=== PATIENT | female | born 1975 | race African-American/Black ===

== ENCOUNTER 2019-02-22 13:58 | Inpatient (IN) | payer OTHER ==
[~2019-02-22] VITALS: Ht 167.6 cm; Wt 93.4 kg
[2019-02-22 14:07] VITALS: Ht 167.6 cm; Wt 93.4 kg
--- NOTE | 2019-02-22 14:10 | NUR ---
PT BIB [facility] WITH C/O VOMITING AND DIARRHEA. PER MEDIC PT WAS PICKED UP NEAR [facility] WHERE PT AND FRIEND HAD STOPPED TO USE THE RESTROOM. PT AND FRIEND ATE THE SAME BREAKFAST; HOWEVER, PT HAD COFFEE FROM THE [facility] IN [facility] WHERE THEY RESIDE. AT BEDSIDE PT WAS ABLE TO AMBULATE WITH ASSIST FROM [place] TO BED, PT LETHARGIC, PT CLOTHES ARE SOILED. PT CLOTHES REMOVED, PT PLACED IN A GOWN AND PLACED ON FULL CM MONITOR. PT REPORTS "I FEEL COLD". RECTAL TEMP WAS 96.9 F. PT GIVEN BLANKETS. PT ABLE TO ANSWER SHORT ANSWER QUESTIONS, BUT NOT FULL SENTANCES. IV WAS ISTABLISHED SUB ARC OPERATOR, BUT PT REMOVED WHILE SHE WAS MOVING IN [facility].
--- NOTE | 2019-02-22 14:21 | NUR ---
HUSBANDS NAME AND NUMBER JULIANA [phone]
--- NOTE | 2019-02-22 15:35 | NUR ---
AND PT'S FRIEND AT BEDSIDE. PT HAD A BM WHILE IN BED. LOOSE STOOL. PT CLEANSED. RESPS E/U, SKIN IS PINK, WARM AND DRY.
--- NOTE | 2019-02-22 15:50 | NUR ---
ED PHYSICIAN AT BEDSIDE FOR PATIENT EVALUATION. MEDICAL SCREENING EXAMINATION COMPLETED BY ED PHYSICIAN DR. PORTILLO
[2019-02-22 15:58] LABS: PLATELET COUNT 224 x10^3mcL (130-400)
[2019-02-22 15:59] LABS: BASOPHIL % 0 % (0-2); RED CELL DISTRIBUTION WIDTH 14.7 % (11.5-14.5)
--- NOTE | 2019-02-22 16:10 | NUR ---
WHILE ROUNDING AND DOING IV CHECK, IV SITE NO LONGER HAD IV. PT REMOVED IT WHILE MOVING AROUND IN BED. SITE DRY, NO BLOOD NOTED. DR. PORTILLO MADE AWARE. WILL ESTABLISH NEW IV.
[2019-02-22 16:11] LABS: CALCIUM 8.6 mg/dL (8.5-10.1); CARBON DIOXIDE 19.6 mmol/L (21-32); CHLORIDE SERUM 104 mmol/L (98-107); CREATININE SERUM 0.8 mg/dL (0.6-1.0); GFR1 > 60 mL/min; GLUCOSE SERUM 111 mg/dL (74-106); POTASSIUM SERUM 3.7 mmol/L (3.5-5.1); SODIUM SERUM 140 mmol/L (136-145)
[2019-02-22 16:16] LABS: ALBUMIN 4.4 g/dL (3.4-5.0); ALKALINE PHOSPHATASE 85 U/L (46-116); ALT/SGPT 52 U/L (14-59); AST/SGOT 41 U/L (15-37); BILIRUBIN TOTAL 0.6 mg/dL (0.20-1.00); LIPASE 69 IU/L (73-393); TOTAL PROTEIN, SERUM 7.9 g/dL (6.4-8.2)
--- NOTE | 2019-02-22 16:20 | NUR ---
PT C/O NAUSEA. DR. PORTILLO MADE AWARE. PT MORE ALERT, FOR SHE'S ABLE TO SPEAK IN FULL SENTANCES. NEW ORDERS PLACED.
--- NOTE | 2019-02-22 16:52 | NUR ---
PT RESTING IN POSITION OF COMFORT. PT SLEEPING BUT EASILY AROUSABLE. RESPS E/U, SKIN IS PINK WARM AND DRY. SP02 100% ON RA.
--- NOTE | 2019-02-22 17:22 | NUR ---
PT RESTING IN POSITION OF COMFORT. SLEEPING BUT EASILY AROUSBALE. NEW IV SIT INTACT. SP02 99% ON RA.
--- NOTE | 2019-02-22 18:33 | NUR ---
PT SLEEPING BUT EASILY AROUSABLE. PT HAD ANOTHER BM IN COMMODE NEAR BED. AT BEDSIDE. HE STS "I COULD TELL SHE'S FEELING BETTER". SPO2 99% ON RA, HR=77.
--- NOTE | 2019-02-22 19:03 | NUR ---
REPORT HAND-OFF TO FLORENTIN CHAUHAN.
--- NOTE | 2019-02-22 19:28 | NUR ---
PT ACTING IRRATICALLY WITH CAREGIVERS. UNWILLING TO GIVE URINE SAMPLE AT THIS TIME.
--- NOTE | 2019-02-22 21:09 | NUR ---
PT RESTING IN BED WITH EYES CLOSED WITH OCCASIONAL IRRATIC MOVEMENTS AND VERBALIZATIONS. AT BEDSIDE.
[2019-02-22 22:25] LABS: T3 TOTAL 1.1 ng/mL
[2019-02-22 22:27] LABS: CHOLESTEROL/HDL RATIO 4.2; MAGNESIUM 1.9 mg/dL (1.8-2.4); PHOSPHOROUS 2.4 mg/dL (2.5-4.9)
[2019-02-22 22:35] LABS: FREE T4 0.97 ng/dL (0.76-1.46); FREE THYROXINE INDEX 2.4 ug/dL (1.4-4.5); T4(THYROXINE) 6.9 ug/dL (4.7-13.3)
--- NOTE | 2019-02-22 23:13 | NUR ---
REPORT GIVEN TO ASRA LERMA.
--- NOTE | 2019-02-22 23:20 | NUR ---
PT ARIVED VIA GURMICHELLE ACCOMPANIED BY ED NURSE AND . PT A/OX 4 BUT LETHARGIC, PT DENIES CHEST PAIN AT THIS TIME, PERIPHERAL PULSES PALPABLE, LUNG SOUNDS CTA RESPIRATIONS EVEN AND UNLABORED, BOWEL SOUNDS ACTIVE, PT COMPLAINS OF NAUSEA, AND REPORTS DIARRHEA, PT VOIDS FREELY, SKININTACT AND DRY, SAFETY PRECAUTIONS IN PLACE, PT AND SPOUSE ORIENTED TO ROOM AND CALL LIGHT CONTROLS, SAFETY PRECAUTIONS IN PLACE, WILL CONTINUE TO MONITOR
[2019-02-22 23:52] VITALS: BP 168/103
[2019-02-23 02:29] LABS: AMPHETAMINE QUAL UR NONE DETECTED (See below); UA SPECIFIC GRAVITY 1.025 (1.005-1.035); microscopic required? YES
[2019-02-23 02:30] LABS: urine erythrocyte NEGATIVE (NEGATIVE)
--- NOTE | 2019-02-23 02:47 | NUR ---
PT RESTING IN BED WITH NO SIGNS OF ACUTE DISTRESS, SLEEPING IN CHAIR NEXT TO HER, PT RESPIRATIONS EVEN AND UNLABOURED, SAFETY PRECAUTIONS IN PLACE WILL CONTINUE TO MONITOR
--- NOTE | 2019-02-23 05:05 | NUR ---
PT COMPLAINED OF NAUSEA, MEDICATED WITH ZOFRAN 4MG PRN PER ORDER, WILL REASSESS
[2019-02-23 05:11] VITALS: BP 165/99
--- NOTE | 2019-02-23 05:15 | NUR ---
PT BP ELEVEATED, AT 165/[address] IN[address] RIVAS, NO NEW ORDERS AT THIS TIME, WILL CONTINUE TO MONITOR
[2019-02-23 05:27] LABS: BASOPHIL % 0.1 % (0-2); PLATELET COUNT 273 x10^3mcL (130-400)
[2019-02-23 05:31] LABS: RED CELL DISTRIBUTION WIDTH 14.9 % (11.5-14.5)
--- NOTE | 2019-02-23 05:33 | NUR ---
PT SLEPT FOR THE FIRST5 HORS OF SHIFT, PT AWOKE AT 5 COMPLAINING OF NAUSEA WHICH WAS TREATED WITH ZOFRAN PER ORDER, PT HAD NO COMPLAINTS OF CHEST PAIN OR SOB THROUGH SHIFT, WILL CONTINUE TO MONITOR AND WILL ENDORSE TO ONCOMING RN
[2019-02-23 05:40] LABS: CALCIUM 8.1 mg/dL (8.5-10.1); CARBON DIOXIDE 22.3 mmol/L (21-32); CHLORIDE SERUM 103 mmol/L (98-107); CREATININE SERUM 0.7 mg/dL (0.6-1.0); GFR1 > 60 mL/min; GLUCOSE SERUM 122 mg/dL (74-106); MAGNESIUM 1.9 mg/dL (1.8-2.4); PHOSPHOROUS 2.7 mg/dL (2.5-4.9); POTASSIUM SERUM 3.5 mmol/L (3.5-5.1); SODIUM SERUM 138 mmol/L (136-145)
--- NOTE | 2019-02-23 07:15 | NUR ---
RECEIVED BEDSIDE REPORT FROM CRA NURSE. PATIENT IS SEEN RESTING IN BED COMFORTABLY. AT BEDSIDE. PATIENT IS ON SOLE LEVELER 21. RESPIRATIONS ARE EVEN NOT LABORED. NO APPARENT RESPIRATORY DISTRESS, SOB, OR PAIN. PATIENT ON ROOM AIR. IV TO LEFT FOOT INTACT AND INFUSING WELL N/S AT 100ML PER HOUR. NO REDNESS NOTED. QUESTIONS AND CONCERNS ADDRESSED. SAFETY PRECAUTIONS IN PLACE.
--- NOTE | 2019-02-23 08:10 | NUR ---
PATIENT IS RESTING IN BED COMFORTABLY. NO APPARENT SIGNS OF PAIN, OR RESPIRATORY DISTRESS. IV TO LEFT FOOT INFUSING WELL. IS AT BEDSIDE. SAFETY PRECAUTIONS ARE IN PLACE.
--- NOTE | 2019-02-23 10:05 | NUR ---
SPOKE WITH DR SCHULTZ AND DR MARCUS REGARDING LOW CALCIUM AT 8.1. PER DR MARCUS NO FUTHER ORDERS REGARDING LOW CALCIUM. PATIENT ASKED IF OK TO SHOWER, AND EAT. DR MARCUS STATED PATIENT IS OK TO SHOWER, SHE WILL PUT IN THE ORDER TO OK FOR SHOWER AND ALSO ADVANCE DIET TO REGUALR DIET.
[2019-02-23 10:14] VITALS: BP 170/88
--- NOTE | 2019-02-23 11:59 | NUR ---
RECEIVED ORDERS FROM DR MARCUS FOR OK TO SHOWER AND ADVANCE DIET TO REGUALR DIET. ASSOCIATE THEATRE PROFESSOR WILL ASSISST PATIENT TO SHOWER. PATIENT IS RESTING COMFORTABLY IN BED. QUESTIONS AND CONCERNS ADDRESSED. SAFETY PRECAUTIONS IN PLACE.
--- NOTE | 2019-02-23 12:13 | NUR ---
SPOKE WITH DR MARCUS REGARDING HIGH BLOO DPRESSURE READING 202/90 RETAKEN AT 188/86. PER DR MARCUS THE PATIENT DOES NOT TAKE ANYTHING FOR HTN AT HOME. NO FURTHER ORDERS AT THIS TIME. CONTACTED DR SCHULTZ PER [place]ANETTE SUP. DR SCHULTZ WILL ORDER LISINOPRIL PO FOR HIGH BLOOD PRESSURE.
[2019-02-23 12:37] VITALS: BP 188/86
--- NOTE | 2019-02-23 12:56 | NUR ---
PATIENT WAS C/O NAUSEA MEDICATED PATIENT WITH ZOFRAN PER EMAR. PATIENT TOLORATED WELL.
--- NOTE | 2019-02-23 14:00 | NUR ---
PATIENT IS RESTING COMFORTABLY IN BED. AT BEDSIDE. PATIENT IS ASLEEP. NO APPARENT SIGNS OF PAIN, OR SOB. SAFETY PRECAUTIONS IN PLACE.
--- NOTE | 2019-02-23 16:05 | NUR ---
ADMINISTERED IVF. PATIENT IS RESTING COMFORTABLY IN BED. DENIES PAIN, N/V. NO APPARENT SIGNS OF SOB. SAFETY PRECAUTIONS MAINTAINED. NO OTHER NEEDS AT THIS TIME.
[2019-02-23 17:49] VITALS: BP 180/87
--- NOTE | 2019-02-23 18:07 | NUR ---
PATIENT IS RESTING COMFORTABLY IN BED. NO APPARENT SIGNS OF PAIN, OR SOB. PATIENT IS SLEEPING. SAFETY PRECAUTIONS IN PLACE. BED IN LOW POSITION. IV INFUASING WELL INTO LLE.
--- NOTE | 2019-02-23 18:51 | NUR ---
PATIENT IS STABLE BUT HAS BEEN HAVING HIGH READING OF BP, LAST ONE 180/[address] M[address]US [address] DR SCHULTZ ARE AWARE. PATIENT IS A/O X4. ON TELE 21. RESPIRATIONS EVEN, NOT LABORED, NO APPARENT SIGNS OF SOB. PATIENT ON ROOM AIR. IV IN LEFT FOOT INFUSING WELL. QUESTIONS AND CONCERNS ADDRESSED. SAFETY PRECAUTIONS MAINTAINED. WILL ENDORSE CARE TO ACREAGE REPORTER NURSE.
--- NOTE | 2019-02-23 19:30 | NUR ---
PT SLEEPING IN BED NO ACUTE DISTRESS NOTED AT TIME OF ASSESSMENT, PT AROUSABLE, A/OX4, TELE MONITOR 21, SINUS BEBE 57, PERIPHERAL PULSES PALPABLE, NO EDEMA PREASENT AT THIS TIME, LUNG SOUNDS CTA, RESPIRATIONS EVEN AND UNLABORED, BOWEL SOUNDS ACTIVE, ABD SOFT AND TENDER TO PALPATION, PT VOIDS FREE OF PAIN OR BURING, PT IS AMBULATORY, IV IN LEFT FOOT INFUSING NS @100ML/HR SITE IS CDI, WITH NO SIGNS OF REDNESS OR SWELLING, SAFETY PRECAUTIONS IN PLACE WILL CONTINUE TO MONITOR.
--- NOTE | 2019-02-23 20:46 | NUR ---
PT COMPLAINS OF MILD ACHING SORENESS OF THE ABDOMEN FROM VOMITING, REQUESTED TYLENOL PRN, ADMINISTERED TYLENOL PER ORDER WILL CONTINUE TO MONITOR
[2019-02-23 20:54] VITALS: BP 179/66
--- NOTE | 2019-02-23 21:46 | NUR ---
PT EXPRESSES SOME RELIEF OF ABD SORENESS FROM THE TYLENOL ADMINISTRATION. WILL CONTINUE TO MONITOR
--- NOTE | 2019-02-23 21:48 | NUR ---
CONTACTED DR ABBOTT ABOUT BLOOD PRESSURE OF 179/66, DR ABBOTT SAID HE WOULD ENTER A PRN ORDER FOR HER BLOOD PRESSURE. NO NEW ORDERS AT THIS TIME, WILL CONTINUE TO MONITOR
--- NOTE | 2019-02-23 22:36 | NUR ---
DR ABBOTT ORDERD HYDRALAZINE 25 MG PO FOR ELEVATED BP, ADMINISTERED PER ORDER. WILL CONTINUE TO MONITOR
--- NOTE | 2019-02-24 01:00 | NUR ---
PT SLEEPING IN BED, NO ACUTE DISTRESS NOTED AT THIS TIME,REPIRATIONS EVEN AND UNLABORED, SAFETY PRECAUTIONS IN PLACE WILL CONTINUE TO MONITOR
--- NOTE | 2019-02-24 04:45 | NUR ---
PT COMPLAINED OF ACID REFLUX, CONTACTED DR RIVAS, AND RECIEVED AN ORDER FOR PRILOSEC 20MG PO QDAY.
--- NOTE | 2019-02-24 05:09 | NUR ---
PT SLEPT ON AND OFF THROUGHT THE NIGHT, PT HAD 2 BOUTS OF NAUSEA THROUGH THE NIGHT WHICH WAS TREATED WITH PRN ZOFRAN PER ORDER, PT COMPLAINED OF ABDOMINAL SORENESS WHICH WAS TREATED WITH PRN TYLENOL PER ORDER, ALL NEEDS MET THROUGH THE NIGHT, SAFETY PRECAUTIONS MAINTAINED, WILL ENDORSE CARE TO THE ONCOMING RN
[2019-02-24 05:23] VITALS: BP 167/93
[2019-02-24 05:59] LABS: BASOPHIL % 0.2 % (0-2); PLATELET COUNT 291 x10^3mcL (130-400); RED CELL DISTRIBUTION WIDTH 14.5 % (11.5-14.5)
[2019-02-24 06:17] LABS: CALCIUM 8.5 mg/dL (8.5-10.1); CARBON DIOXIDE 24.9 mmol/L (21-32); CHLORIDE SERUM 101 mmol/L (98-107); CREATININE SERUM 0.7 mg/dL (0.6-1.0); GFR1 > 60 mL/min; GLUCOSE SERUM 108 mg/dL (74-106); POTASSIUM SERUM 3.1 mmol/L (3.5-5.1); SODIUM SERUM 138 mmol/L (136-145)
--- NOTE | 2019-02-24 06:57 | NUR ---
PT K+ CAME BACK 3.1 WILL ENDORSE TO ONCOMING RN
--- NOTE | 2019-02-24 08:00 | NUR ---
RESTING QUIELTY. PT NOT FEELING WELL. SAYS SHE DOES NOT WANT TO EAT RIGHT NOW. ADMIN IV ZOFRAN FOR NAUSEA. INDEPENDENT W ADL'S. CALL LIGHT WITHIN REACH. T.C. FROM HER . HE SILL BE IN TO SEE PT LATER TODAY.
[2019-02-24] MEDS ORDERED: ZESTRIL20 MG PO (08:02)
[2019-02-24 09:26] VITALS: BP 178/96
[2019-02-24 12:43] VITALS: BP 165/97
[2019-02-24 15:41] VITALS: BP 168/101
--- NOTE | 2019-02-24 15:43 | NUR ---
PT TAHMINA HERSELF A BATH AT SINK. TELE # 21 RETURNED TO TELE THOM. RESIDENT PAGED RE: BP 168/101 HR 67.
--- NOTE | 2019-02-24 19:15 | NUR ---
RECEIVED PT IN BED RESTING.NO ACUTE RESPIRATORY DISTRESS NOTED.DENIES ANY PAIN AT THIS TIME. NO C/O NAUSEA AND VOMITING.IV SITE PATENT AND INTACT. BED IN LOWEST POSITION, CALL LIGHT WITHIN REACH. WILL CONTINUE TO MONITOR.
--- NOTE | 2019-02-24 19:31 | NUR ---
ALERT AND ORIENTED. RESTED ENTIRE SHIFT. BRP, GOT UP TO SINK FOR SINK BATH. NO VOMITING. ZOFRAN ADMIN X 1 THIS SHIFT. NO C/O PAIN. BP HAS BEEN RUNNING HIGH THIS SHIFT. NEW ORDER FOR HYDRALIZINE PRN. NS INFUSING 10 CC HOUR. IONDEPENDENT W ADL'S CALL LIGHT WITHIN REACH.
--- NOTE | 2019-02-24 20:45 | NUR ---
PT C/O ROSENBERG 05/07. MEDICATED TYLENOL 650MG PO ORDERED. WILL CONTINUE TO MMONITOR.
[2019-02-24 20:48] VITALS: BP 163/94
--- NOTE | 2019-02-24 22:38 | NUR ---
CHECKED BP: 174/100, HR:86. MEDICATED HYDRALAZINE 10MG IV ORDERED. WILL CONTINUE TO MONITOR.
--- NOTE | 2019-02-24 23:41 | NUR ---
PT C/O INSOMIA. MEDICATED AMBIEN 5MG ORDRED. WILL CONTINUE TO MONITOR.
[2019-02-25 00:09] VITALS: BP 117/78
--- NOTE | 2019-02-25 00:09 | NUR ---
RECHECKED BP: 117/78. HR: 108.
--- NOTE | 2019-02-25 05:15 | NUR ---
PT ASLEEP.NO ACUTE RESPIRATORY DISTRESS NOTED.NO S/S OF PAIN. BED IN LOWEST POSITION,CALL LIGHT WITHIN REACH. WILL CONTINUE TO MONITOR.
--- NOTE | 2019-02-25 05:18 | NUR ---
PT APPEARS TO BE SLEEPING.NO DISTRESS NOTED. NO C/O PAIN. BED IN LOWEST POSITION,CALL LIGHT WITHIN REACH. WILL CONTINUE TO MONITOR.
[2019-02-25 05:59] VITALS: BP 122/72
[2019-02-25 06:19] LABS: BASOPHIL % 0.1 % (0-2); PLATELET COUNT 303 x10^3mcL (130-400); RED CELL DISTRIBUTION WIDTH 14.5 % (11.5-14.5)
[2019-02-25 06:52] LABS: CALCIUM 8.9 mg/dL (8.5-10.1); CARBON DIOXIDE 22.3 mmol/L (21-32); CHLORIDE SERUM 100 mmol/L (98-107); CREATININE SERUM 0.8 mg/dL (0.6-1.0); GFR1 > 60 mL/min; GLUCOSE SERUM 101 mg/dL (74-106); POTASSIUM SERUM 3.2 mmol/L (3.5-5.1); SODIUM SERUM 136 mmol/L (136-145)
--- NOTE | 2019-02-25 07:05 | NUR ---
RECEIVED PATIENT FROM PEDIATRIC SOCIAL WORKER NURSE. PATIENT IS RESTING WITH BOTH EYES CLOSED, AROUSABLE. ON ROOM AIR, BREATHING EVEN ANDU UNLABORED. COMMODE NOTED AT BEDSIDE. IV NOTED TO RIGHT HAND, IVF INFUSING WELL ORDERED, NO S/S ERYTHEMA. CALL LIGHT WITHIN EASY REACH. WILL CONTINUE PLAN OF CARE.
--- NOTE | 2019-02-25 07:21 | NUR ---
CARE ENDORSED TO DAY NURSE ДМИТРИЙ.
[2019-02-25 08:49] VITALS: BP 145/91
[2019-02-25] MEDS ORDERED: NOR5 PO (10:15)
--- NOTE | 2019-02-25 11:36 | NUR ---
PATIENT GIVEN DC INSTRUCTIONS. ALL QUESTIONS ANSWERED REGARDING DC INSTRUCTIONS. ALL NEW PRESCRIPTIONS GIVEN TO PATIENT. PATIENT INSTRUCTED TO MONITOR BP AT HOME. IV REMOVED AND CATHETER TIP INTACT. PATIENT INSTRUCTED TO CALL FAMILY TO ARRANGE FOR PATIENT CARRIER. PATIENT WILL NOTIFY WHEN FAMILY IS HERE. PATIENT TO GET DRESSED AND WAIT FOR RIDE.
--- NOTE | 2019-02-25 12:13 | NUR ---
PATIENT DC'D HOME AT THIS TIME. AWAKE, ALERT AND ORIENTED. NO C/O PAIN OR DISCOMFORT. VS STABLE AT TIME OF DC. ALL PERSONAL BELONGINGS TAKEN WITH THE PATIENT. PATIENT TAKEN DOWN TO DC OFFICE BY RAYMON ORELLANA.
== END 2019-02-25 12:23 | disposition home or self-care (01) | DRG 249 ==
LOC: ED 13:58 → MU 21:42 → DU 23:19 → MU 23:25 → DU 02-23 07:34 → MU 02-24 14:35 → DU 02-24 14:45 → MU 02-25 04:41
PROVIDERS: Emergency Medicine; ADMIT General Practice
DX: A08.4 Viral intestinal infection, unspecified (principal); E87.2 Acidosis; E66.01 Morbid (severe) obesity due to excess calories; E83.39 Other disorders of phosphorus metabolism; E86.0 Dehydration; Z87.891 Personal history of nicotine dependence; D72.829 Elevated white blood cell count, unspecified; Z68.37 Body mass index [BMI] 37.0-37.9, adult; Z71.3 Dietary counseling and surveillance; I10 Essential (primary) hypertension
CPT/HCPCS: 83880; 84439; 87046; 87046-59; J0360; J2405; J2550; J3420; J3480; J7030; Q0092